=== PATIENT | male | born 1975 | race Caucasian/White ===

== ENCOUNTER 2016-11-01 09:50 | Emergency (ER) | payer SELFPAY ==
[~2016-11-01] VITALS: Ht 175.3 cm; Wt 90.7 kg
[2016-11-01 10:11] VITALS: BP_SYST 143
[2016-11-01] MEDS ORDERED: HYDROmorphone 2 MG/ML VIAL IVP ONE ×3 (13:15→15:15)
[2016-11-01] MEDS ORDERED: methylPREDNISolone SOD SUCC/PF 62.5 MG/ML VIAL IVP ONE (13:15)
[2016-11-01] MEDS ORDERED: ONDANSETRON HCL 4 MG/2 ML VIAL IVP ONE (13:15)
[2016-11-01] MEDS ORDERED: NACL 0.9% 1,000 ML IV ONE (13:15)
[2016-11-01 13:49] LABS: BASOPHILS # (AUTO) 0.2 K/uL (0.0-0.2); BASOPHILS % (AUTO) 1.5 % (0.0-2.0); EOSINOPHILS % (AUTO) 0.2 % (0.0-4.0); HEMATOCRIT 47.4 % (36-54); HEMOGLOBIN 15.6 g/dL (14.0-18.0); LYMPHOCYTES # (AUTO) 1.3 K/uL (1.0-5.5); LYMPHOCYTES % (AUTO) 12.3 % (20.5-51.5); MEAN CORPUSCULAR HEMOGLOBIN 30 pg (27-31); MEAN CORPUSCULAR HGB CONC 33 % (32-36); MEAN CORPUSCULAR VOLUME 92 fL (79.0-98.0); MONOCYTES # (AUTO) 0.8 K/uL (0.0-1.0); NEUTROPHILS # (AUTO) 8.2 K/uL (1.8-7.7); PLATELET COUNT (AUTO) 201 K/uL (130-430); RED BLOOD CELL COUNT(AUTO) 5.18 MIL/uL (4.2-6.2); RED CELL DISTRIBUTION WIDTH 12.6 % (9.0-15.0); WHITE BLOOD COUNT (AUTO) 10.5 K/uL (4.8-10.8)
[2016-11-01 14:15] LABS: CALCIUM 8.1 mg/dL (8.4-11.0); CREATININE 0.85 mg/dL (0.55-1.30); POTASSIUM 4.3 mmol/L (3.5-5.1)
[2016-11-01 14:17] LABS: ALBUMIN 3.2 g/dL (3.4-4.8)
[2016-11-01 14:31] LABS: TOTAL BILIRUBIN 0.6 mg/dL (0.0-1.0); TOTAL PROTEIN, SERUM 6.6 g/dL (6.4-8.3)
[2016-11-01] MEDS ORDERED: IOHEXOL 100 ML IV ONE (14:44)
[2016-11-01 15:05] LABS: BILIRUBIN,URINE NEGATIVE (NEGATIVE); BLOOD, URINE NEGATIVE (NEGATIVE); CLARITY/URINE SL HAZY (CLEAR); COLOR,URINE YELLOW (YELLOW); GLUCOSE,URINE NEGATIVE (NEGATIVE); KETONES,URINE NEGATIVE (NEGATIVE); LEUKOCYTE ESTERASE ,URINE NEGATIVE (NEGATIVE); NITRITE, URINE NEGATIVE (NEGATIVE); PROTEIN URINE NEGATIVE (NEGATIVE); UROBILINOGEN,URINE 0.2 (0.2-1.0)
[2016-11-01 16:30] VITALS: BP_SYST 158
== END 2016-11-01 16:20 | disposition home or self-care (01) ==
LOC: SED 09:50
DX: R10.30 Lower abdominal pain, unspecified (principal); K50.90 Crohn's disease, unspecified, without complications; R11.2 Nausea with vomiting, unspecified; Z88.0 Allergy status to penicillin; Z88.8 Allergy status to other drugs, medicaments and biological substances
CPT/HCPCS: 36415; 74177; 80053; 81003; 83690; 85025; 93005; 96374; 96375; 96376; 99285; J1170; J2405; J2930; J7030; Q9967

== ENCOUNTER 2016-11-07 23:31 | Emergency (ER) | payer SELFPAY ==
[~2016-11-07] VITALS: Ht 175.3 cm; Wt 90.7 kg
[2016-11-07 23:31] VITALS: BP_SYST 155
--- NOTE | 2016-11-07 23:31 | NUR ---
Patient to ER bed 8 to gown for evaluation. Side rails up. Report given to RAN MARQUIS.
[2016-11-07] MEDS ORDERED: AMLO5TAB4 PO (23:50)
--- NOTE | 2016-11-07 23:50 | NUR ---
Medication reconciliation completed with information provided by - verbal from patient. Any prior medication reconciliation on file was reviewed and corrected.
--- NOTE | 2016-11-08 00:09 | NUR ---
Patient to ED for eval of abd pain and bloody diarrhea x 1 day. Patient with hx of Crohn's disease, patient reports that the last time he was here he was given Dilaudid 6 mg and that "that fixed me right up" requesting the same. Patient awaiting evaluation by ER MD. Will continue to observe and assess.
[2016-11-08] MEDS ORDERED: NACL 0.9% 1,000 ML IV ONE (00:16)
[2016-11-08 00:46] LABS: BASOPHILS # (AUTO) 0.1 K/uL (0.0-0.2); BASOPHILS % (AUTO) 0.5 % (0.0-2.0); HEMATOCRIT 41.3 % (36-54); HEMOGLOBIN 13.9 g/dL (14.0-18.0); LYMPHOCYTES # (AUTO) 0.9 K/uL (1.0-5.5); LYMPHOCYTES % (AUTO) 8.9 % (20.5-51.5); MEAN CORPUSCULAR HEMOGLOBIN 31 pg (27-31); MEAN CORPUSCULAR HGB CONC 34 % (32-36); MEAN CORPUSCULAR VOLUME 92 fL (79.0-98.0); MONOCYTES # (AUTO) 0.6 K/uL (0.0-1.0); NEUTROPHILS % (AUTO) 84.6 % (40.0-70.0); PLATELET COUNT (AUTO) 251 K/uL (130-430); RED BLOOD CELL COUNT(AUTO) 4.48 MIL/uL (4.2-6.2); RED CELL DISTRIBUTION WIDTH 12.8 % (9.0-15.0); WHITE BLOOD COUNT (AUTO) 10.6 K/uL (4.8-10.8)
[2016-11-08 00:54] LABS: PROTHROMBIN TIME 10.4 SECS (9.5-12.5)
[2016-11-08 00:58] LABS: CALCIUM 8.2 mg/dL (8.4-11.0); CREATININE 0.95 mg/dL (0.55-1.30); POTASSIUM 3.6 mmol/L (3.5-5.1)
[2016-11-08 01:05] LABS: ALBUMIN 3.7 g/dL (3.4-4.8); TOTAL BILIRUBIN 0.2 mg/dL (0.0-1.0); TOTAL PROTEIN, SERUM 7.3 g/dL (6.4-8.3)
--- NOTE | 2016-11-08 01:18 | NUR ---
Patient wanting to hold on IVF, unless he is getting pain medication/solu-medrol. "Otherwise, it is a waste of my time" Dr Temple notified and awaiting orders.
[2016-11-08 01:21] LABS: BILIRUBIN,URINE NEGATIVE (NEGATIVE); BLOOD, URINE NEGATIVE (NEGATIVE); CLARITY/URINE CLEAR (CLEAR); COLOR,URINE YELLOW (YELLOW); GLUCOSE,URINE 1+ (NEGATIVE); KETONES,URINE TRACE (NEGATIVE); LEUKOCYTE ESTERASE ,URINE NEGATIVE (NEGATIVE); NITRITE, URINE NEGATIVE (NEGATIVE); PROTEIN URINE NEGATIVE (NEGATIVE); UROBILINOGEN,URINE 0.2 (0.2-1.0)
[2016-11-08] MEDS ORDERED: methylPREDNISolone SOD SUCC 500 MG/VIAL (Solu-MEDROL) IV ONE (01:30)
[2016-11-08] MEDS ORDERED: DIPHENOXYLATE HCL/ATROP SULF 2.5 MG TAB PO ONE (01:30)
--- NOTE | 2016-11-08 01:30 | NUR ---
Patient upset and wants to speak with Dr Temple, Dr Temple notified and will be in to see patient. Patient updated on this information.
[2016-11-08 01:33] LABS: BARBITURATE, URINE NEGATIVE (NEG <=200); BENZODIAZEPINE, URINE NEGATIVE (NEG <=150); CANNABINOID, URINE NEGATIVE (NEG <=50); COCAINE, URINE NEGATIVE (NEG <=150); METHAMPHETAMINES SCREEN,URINE NEGATIVE (NEG <=500); OPIATE, URINE POSITIVE (NEG <=100); PHENCYCLIDINE SCREEN,URINE NEGATIVE (NEG <=25); UR TRICYCLIC ANTIDEPRESSANTS NEGATIVE (NEG <=300); URINE AMPHETAMINE NEGATIVE (NEG <=500); URINE METHADONE NEGATIVE (NEG <=200); URINE OXYCODONE SCREEN NEGATIVE (NEG <=100); URINE PROPOXYPHENE SCREEN NEGATIVE (NEG <=300)
--- NOTE | 2016-11-08 01:40 | NUR ---
Patient not in room, not in waiting room, outside of ED or in bathrooms. Patient eloped prior to treatment being completed. Left without aftercare instructions, patient seen ambulating in ED with slow, steady gait
--- NOTE | 2016-11-08 01:40 | NUR ---
Dr Temple in to see patient, but patient not in room, not in bathrooms or waiting room. unable to locate patient. Patient MD nataliia notified/aware
--- NOTE | 2016-11-08 01:45 | NUR ---
Patient Gelyd informed.
== END 2016-11-08 01:40 | disposition left against medical advice (07) ==
LOC: SED 23:31
DX: Z76.5 Malingerer [conscious simulation] (principal); Z53.20 Procedure and treatment not carried out because of patient's decision for unspecified reasons; F17.200 Nicotine dependence, unspecified, uncomplicated; Z88.0 Allergy status to penicillin; Z88.8 Allergy status to other drugs, medicaments and biological substances
CPT/HCPCS: 36415; 80053; 80307; 81003; 82150; 83605; 83690; 85025; 85610; 85730; 99284; G0482; J7030

== ENCOUNTER 2017-09-02 14:38 | Emergency (ER) | payer MEDICAID ==
[~2017-09-02] VITALS: Ht 175.3 cm; Wt 90.7 kg
[~2017-09-02 14:38] MED LIST: AMLO5TAB4 PO
[2017-09-02 14:46] VITALS: BP_SYST 143
[2017-09-02] MEDS ORDERED: NACL 0.9% 1,000 ML IV ONE (15:15)
[2017-09-02] MEDS ORDERED: MORPHINE 4 MG/ML INJ. SYRINGE IVP ONE ×2 (15:15→16:30)
[2017-09-02 15:16] LABS: BILIRUBIN,URINE NEGATIVE (NEGATIVE); BLOOD, URINE NEGATIVE (NEGATIVE); CLARITY/URINE CLEAR (CLEAR); COLOR,URINE YELLOW (YELLOW); GLUCOSE,URINE NEGATIVE (NEGATIVE); KETONES,URINE NEGATIVE (NEGATIVE); LEUKOCYTE ESTERASE ,URINE NEGATIVE (NEGATIVE); NITRITE, URINE NEGATIVE (NEGATIVE); PROTEIN URINE NEGATIVE (NEGATIVE); UROBILINOGEN,URINE 0.2 (0.2-1.0)
[2017-09-02 15:27] LABS: BARBITURATE, URINE NEGATIVE (NEG <=200); BENZODIAZEPINE, URINE NEGATIVE (NEG <=150); CANNABINOID, URINE NEGATIVE (NEG <=50); COCAINE, URINE NEGATIVE (NEG <=150); METHAMPHETAMINES SCREEN,URINE NEGATIVE (NEG <=500); OPIATE, URINE POSITIVE (NEG <=100); PHENCYCLIDINE SCREEN,URINE NEGATIVE (NEG <=25); UR TRICYCLIC ANTIDEPRESSANTS NEGATIVE (NEG <=300); URINE AMPHETAMINE NEGATIVE (NEG <=500); URINE METHADONE NEGATIVE (NEG <=200); URINE OXYCODONE SCREEN NEGATIVE (NEG <=100); URINE PROPOXYPHENE SCREEN NEGATIVE (NEG <=300)
[2017-09-02 15:48] LABS: EOSINOPHILS % (AUTO) 0.7 % (0.0-4.0); HEMATOCRIT 40.1 % (36-54); HEMOGLOBIN 13.6 g/dL (14.0-18.0); LYMPHOCYTES % (AUTO) 18.2 % (20.5-51.5); MEAN CORPUSCULAR HEMOGLOBIN 30 pg (27-31); MEAN CORPUSCULAR HGB CONC 34 % (32-36); MEAN CORPUSCULAR VOLUME 90 fL (79.0-98.0); MONOCYTES % (AUTO) 8.8 % (1.7-9.3); NEUTROPHILS % (AUTO) 71.4 % (40.0-70.0); PLATELET COUNT (AUTO) 240 K/uL (130-430); RED BLOOD CELL COUNT(AUTO) 4.47 MIL/uL (4.2-6.2); RED CELL DISTRIBUTION WIDTH 15.9 % (9.0-15.0); WHITE BLOOD COUNT (AUTO) 13.6 K/uL (4.8-10.8)
[2017-09-02 15:49] LABS: BASOPHILS # (AUTO) 0.1 K/uL (0.0-0.2); BASOPHILS % (AUTO) 0.9 % (0.0-2.0); EOSINOPHILS # (AUTO) 0.1 K/uL (0.0-0.4); LYMPHOCYTES # (AUTO) 2.5 K/uL (1.0-5.5); MONOCYTES # (AUTO) 1.2 K/uL (0.0-1.0); NEUTROPHILS # (AUTO) 9.7 K/uL (1.8-7.7)
[2017-09-02 15:58] LABS: CALCIUM 8.3 mg/dL (8.4-11.0); CREATININE 0.82 mg/dL (0.55-1.30); POTASSIUM 3.4 mmol/L (3.5-5.1)
[2017-09-02 16:02] LABS: ALBUMIN 3.1 g/dL (3.4-4.8); TOTAL BILIRUBIN 0.4 mg/dL (0.0-1.0)
== END 2017-09-02 16:44 | disposition left against medical advice (07) ==
LOC: SED 14:38
DX: K50.90 Crohn's disease, unspecified, without complications (principal); E87.6 Hypokalemia; F11.20 Opioid dependence, uncomplicated; R03.0 Elevated blood-pressure reading, without diagnosis of hypertension; Z76.5 Malingerer [conscious simulation]; Z88.0 Allergy status to penicillin
CPT/HCPCS: 36415; 74176; 80053; 81003; 80307; 83605; 83690; 85025; 87040; 96361; 96374; 96376; 99285; J2270; J7030